=== PATIENT | male | born 1975 ===

== ENCOUNTER → 2017-10-11 | Outpatient (CLI) | payer BC ==
--- NOTE | 2017-10-12 11:49 | CODING QUERY NO DIAGNOSIS ---
TREATMENT RENDERED WITHOUT A DIAGNOSIS To promote full compliance with coding requirements relating to patient care, physician participation is requested in all cases of chemical engraver uncertainty. Please assist us with providing a diagnosis/symptom for the test(s) below: A diagnosis/symptom was not documented on your Order. A valid diagnosis/symptom is required to bill all insurances. Please remember that we are unable to code a diagnosis of rule out, probable, possible, questionable, or suspected. Tests that require a diagnosis for date of service 10/11/2017: * AERO/ANAE CULTURE & GRAM STAIN-RIGHT KNEE DIAGNOSIS: Provider Signature: Date: Thank you Kimberlyn Pickard [email or web address] Once completed, please kindly fax back to [phone] For questions please call [phone]
== END | disposition home or self-care (01) ==
LOC: C.LABSPEC 17:53
PROVIDERS: ATTEND Orthopaedic Surgery
DX: M85.60 Other cyst of bone, unspecified site (principal)

== ENCOUNTER → 2017-10-11 | Outpatient (CLI) | payer BC ==
--- NOTE | 2017-10-18 13:43 | CODING QUERY NO DIAGNOSIS ---
TREATMENT RENDERED WITHOUT A DIAGNOSIS To promote full compliance with coding requirements relating to patient care, physician participation is requested in all cases of physician coder uncertainty. Please assist us with providing a diagnosis/symptom for the test(s) below: A diagnosis/symptom was not documented on your Order. A valid diagnosis/symptom is required to bill all insurances. Please remember that we are unable to code a diagnosis of rule out, probable, possible, questionable, or suspected. Tests that require a diagnosis for date of service 10/11/17: * RIGHT TIBIA BIOPSY DIAGNOSIS: Provider Signature: Date: Thank you Kimberlyn Pickard [employer] Once completed, please kindly fax back to [phone] For questions please call [phone]
== END | disposition home or self-care (01) ==
LOC: C.PATHSPEC 17:25
PROVIDERS: ATTEND Orthopaedic Surgery
DX: M85.461 Solitary bone cyst, right tibia and fibula (principal)